=== PATIENT | female | born 1955 | race Caucasian/White ===

== ENCOUNTER → 2016-12-19 | Outpatient (CLI) | payer BC ==
[~2016-12-19] MED LIST: ASCO250T14 PO; ATEN-173 PO; BUPR-79 PO; CHOL1TAB76 PO; CLON0.5T3 PO; DIGECAP3 PO; ESTCR PV; MULT-506 PO; SIMV20TA2 PO
== END | disposition home or self-care (01) ==
LOC: C.PAPS 16:23
PROVIDERS: ATTEND Obstetrics & Gynecology
DX: C56.9 Malignant neoplasm of unspecified ovary (principal)

== ENCOUNTER → 2017-03-01 | Outpatient (CLI) | payer BC ==
--- NOTE | 2017-03-01 16:09 | MAMMOGRAPHY REPORT ---
BILATERAL DIGITAL SCREENING MAMMOGRAM TOMOSYNTHESIS WITH CAD: 03/01/2017 CLINICAL HISTORY: Routine screening. Patient has no complaints. TECHNIQUE: Breast tomosynthesis in addition to standard 2D mammography was performed. Current study was also evaluated with a Computer Aided Detection (CAD) system. COMPARISON: Comparison is made to exams dated: 06/21/2016 ultrasound, 06/21/2016 mammogram, 02/24/2016 mammogram, 02/22/2015 mammogram, 02/18/2014 mammogram, and 02/12/2013 mammogram - [facility]. BREAST COMPOSITION: There are scattered areas of fibroglandular density in both breasts. FINDINGS: No suspicious masses, calcifications, or areas of architectural distortion are noted in e ither breast. There has been no significant interval change compared to prior exams. A round circum scribed 8 mm mass overlying the left pectoralis muscle on the MLO view has been previously marked wi th a mole marker on prior exams including the 2006, 2012, and 2015 exams, and is therefore consisten t with a skin lesion. IMPRESSION: ACR BI-RADS CATEGORY 2: BENIGN There is no mammographic evidence of malignancy. A 1 year screening mammogram is recommended. The p atient will receive written notification of the results. Approximately 10% of breast cancers are not detected with mammography. A negative mammographic repor t should not delay biopsy if a clinically suggestive mass is present. Patty Lund M.D. /:03/01/2017 14:52:52 Manager Progressive Care: Zulma ZAVALA)(Richie), [facility] letter sent: Normal 1/2 BI-RADS Code: ACR BI-RADS Category 2: Benign
== END | disposition home or self-care (01) ==
LOC: C.MAMM 10:00
PROVIDERS: ATTEND Obstetrics & Gynecology
DX: Z12.31 Encounter for screening mammogram for malignant neoplasm of breast (principal)

== ENCOUNTER → 2017-06-12 | Outpatient (CLI) | payer BC | END | disposition home or self-care (01) | LOC: C.PAPS 15:53 | PROVIDERS: ATTEND Obstetrics & Gynecology | DX: C56.9 Malignant neoplasm of unspecified ovary (principal); N95.2 Postmenopausal atrophic vaginitis ==

== ENCOUNTER → 2018-01-01 | Outpatient (CLI) | payer BC | END | disposition home or self-care (01) | LOC: C.PAPS 13:43 | PROVIDERS: ATTEND Obstetrics & Gynecology | DX: C56.9 Malignant neoplasm of unspecified ovary (principal) ==

== ENCOUNTER → 2018-03-07 | Outpatient (CLI) | payer BC ==
--- NOTE | 2018-03-10 14:32 | MAMMOGRAPHY REPORT ---
BILATERAL DIGITAL SCREENING MAMMOGRAM TOMOSYNTHESIS WITH CAD: 03/07/2018 CLINICAL HISTORY: Routine screening. Patient has no complaints. TECHNIQUE: Breast tomosynthesis in addition to standard 2D mammography was performed. Current study was also evaluated with a Computer Aided Detection (CAD) system. COMPARISON: Comparison is made to exams dated: 03/01/2017 mammogram, 06/21/2016 ultrasound, 06/21/2016 mammogram, 02/24/2016 mammogram, 02/22/2015 mammogram, and 02/18/2014 mammogram - [facility]. BREAST COMPOSITION: There are scattered areas of fibroglandular density in both breasts. FINDINGS: There is a round circumscribed 11 mm mass within the left axillary region seen on the MLO v iew only, which is located on the last slices of the tomosynthesis images and could represent a skin finding such as a sebaceous or epidermal inclusion cyst, however, targeted ultrasound is recommended for further evaluation. The remainder of both breasts are stable compared to prior exams, without suspicious masses, calcific ations, or areas of architectural distortion noted. IMPRESSION: ACR BI-RADS CATEGORY 0: INCOMPLETE EVALUATION: NEED ADDITIONAL IMAGING EVALUATION Left axillary mass, for which additional imaging evaluation is recommended. The patient will be call ed to schedule an appointment. Approximately 10% of breast cancers are not detected with mammography. A negative mammographic report should not delay biopsy if a clinically suggestive mass is present. Patty Lund M.D. /:03/07/2018 16:22:02 Community Support Specialist: Selena Carnes, [facility] letter sent: Addl Imaging 0 BI-RADS Code: ACR BI-RADS Category 0: Incomplete Evaluation: Need Additional Imaging Evaluation
== END | disposition home or self-care (01) ==
LOC: C.MAMM 10:01
PROVIDERS: ATTEND Obstetrics & Gynecology
DX: Z12.31 Encounter for screening mammogram for malignant neoplasm of breast (principal); R22.9 Localized swelling, mass and lump, unspecified

== ENCOUNTER → 2018-03-17 | Outpatient (CLI) | payer BC ==
--- NOTE | 2018-03-17 15:25 | MAMMOGRAPHY REPORT ---
ULTRASOUND OF LEFT BREAST: 03/17/2018 CLINICAL HISTORY: 62-year-old woman called back from screening mammography for an 11 mm circumscribed mass in the left axilla, projecting over the pectoralis muscle on the left MLO view. COMPARISON: Comparison is made to exams dated: 03/07/2018 mammogram, 03/01/2017 mammogram, 02/24/2016 ma mmogram, 02/22/2015 mammogram, 02/18/2014 mammogram, and 02/12/2013 mammogram - [facility]. Visual inspection of the left axilla demonstrates an oval FINDINGS: Visual inspection of the left axilla demonstrates an oval raised flesh-colored 1 cm lesion with central black punctum targeted ultrasound performed over this. Visible lesion demonstrates an intradermal/subdermal oval circumscribed hypoechoic mass with mild posterior acoustic enhancement. N o internal vascularity is demonstrated. This mass measures 11.7 x 6.7 x 8.2 mm, and a punctum is indy ntly visualized along the lateral aspect of the mass. This is most compatible with an epidermal incl usion cyst, particularly given the findings on visual inspection, and is benign. Conservative manage ment with NSAIDs and hot compresses were suggested. IMPRESSION: ACR BI-RADS CATEGORY 2: BENIGN The 11 mm mass in the left axilla is most compatible with an epidermal inclusion cyst, based on ultra sound and visual inspection findings. There is no targeted sonographic evidence of malignancy or deloris picious lymphadenopathy identified. Conservative management with NSAIDs and hot compresses were sugg ested. Also recommend return to annual screening mammography schedule. Chloe Steiner M.D. ay/:03/17/2018 15:14:03 Attending Technologist: Katy Choi RT(R)(M), [facility] Chef Assistant: Dr. Chloe Steiner, [facility] letter sent: Normal 1/2 BI-RADS Code: ACR BI-RADS Category 2: Benign
== END | disposition home or self-care (01) ==
LOC: C.MAMM 13:51
PROVIDERS: ATTEND Obstetrics & Gynecology
DX: R22.32 Localized swelling, mass and lump, left upper limb (principal)

== ENCOUNTER → 2018-06-17 | Outpatient (CLI) | payer BC ==
[~2018-06-17] MED LIST changes: -CLON0.5T3 PO; +KLN/5 PO
== END | disposition home or self-care (01) ==
LOC: C.LAB1850 10:57
PROVIDERS: ATTEND Obstetrics & Gynecology
DX: C56.9 Malignant neoplasm of unspecified ovary (principal)

== ENCOUNTER → 2018-06-17 | Outpatient (CLI) | payer BC | END | disposition home or self-care (01) | LOC: C.PAPS 14:42 | PROVIDERS: ATTEND Obstetrics & Gynecology | DX: Z01.419 Encounter for gynecological examination (general) (routine) without abnormal findings (principal) ==